=== PATIENT | male | born 1945 | race Caucasian/White ===

== ENCOUNTER 2019-12-02 12:09 | Emergency (ER) | payer OTHER, SELFPAY ==
[2019-12-02 12:15] VITALS: BP 149/74; PULSE 52; RESP 20; TEMP 36.8; O2SAT 95; BMI 38.0
--- NOTE | 2019-12-02 12:35 | ECG_ITS ---
[facility] Test Date: 2019-12-02 Pat Name: Raleigh Delatorre Department: Room: Gender: Male Manager Sharepoint: : 1945 Requested By: Tatiana Cummings I Order Number: [id number] Med MD: Jen Looney M.D. Measurements Intervals [place] Rate: 51 P: 68 CA: 182 QRS: -49 QRSD: 110 T: 44 QT: 420 QTc: 389 Interpretive Statements SINUS BRADYCARDIA LEFT AXIS DEVIATION [QRS AXIS < -30] S1-S2-S3 PATTERN, CONSISTENT WITH PULMONARY DISEASE, RVH, OR NORMAL VARIANT Compared to ECG 06/18/2017 14:37:43 First degree AV block no longer present Intraventricular conduction delay no longer present Electronically Signed On 12-02-2019 19:33:16 CDT by Jen Looney M.D. [email or web address]
--- NOTE | 2019-12-02 12:35 | XRR_ITS ---
PROCEDURE INFORMATION: Exam: XR Chest, 1 View Exam date and time: 12/02/2019 1:01 PM Age: 74 years old Clinical indication: Chest pain; Type not specified TECHNIQUE: Imaging protocol: XR of the chest Views: 1 view. COMPARISON: CR Chest 2 views* [id number] 06/18/2017 3:04 PM FINDINGS: Lungs: Unremarkable. No consolidation. Pleural space: Unremarkable. No pleural effusion. No pneumothorax. Heart/Mediastinum: Unremarkable. No cardiomegaly. Bones/joints: No acute findings. XR/XR chest 1V portable [id number] IMPRESSION: No acute findings.
[2019-12-02 12:55] LABS: Basophils % 0.5 %; Eosinophils # 0.1 10^3/uL (0.0-0.8); Eosinophils % 1.2 %; Hemoglobin 14.2 g/dL (11.7-16.6); Lymphocytes % 23.9 %; Mean Corpuscular HGB Conc 31.6 g/dL (30.0-36.0); Mean Corpuscular Hemoglobin 27.8 pg (28.0-34.0); Mean Corpuscular Volume 88.2 fL (80-94); Mean Platelet Volume 9.9 fL (7.4-10.4); Monocytes # 0.7 10^3/uL (0.2-0.9); Monocytes % 8.4 %; Neutrophils # 5.4 10^3/uL (1.8-7.7); Neutrophils % 65.6 %; Nucleated Red Blood Cells % 0 %; Platelet Count 189 10^3/cmm (130-400); Red Cell Distribution Width 13.7 % (12.1-15.1); White Blood Count 8.2 10^3/uL (4.0-10.0)
--- NOTE | 2019-12-02 12:57 | ED_ITS ---
HPI - Chest Pain General: Chief Complaint: Chest Pain Stated Complaint: cp Time Seen by Provider: 12/02/19 12:31 Source: patient Mode of arrival: ambulatory Limitations: no limitations History of Present Illness: HPI narrative: Chest pain started last night, occasional radiation to his shoulders. Chest pain is episodic and not constant. complaint: chest pain Onset (ago): day(s) (1) Timing of current episode: episodic Onset: during rest Pain location: left chest Pain radiation: left shoulder Severity: mild Quality: sharp Relieving factors: nothing Exacerbating factors: nothing Associated symptoms: Reports no associated symptoms; Deny abdominal pain, dyspnea, fever(s), nausea, palpitations or vomiting Review of Systems General: Reports: 10 or more systems reviewed and unremarkable except in HPI and below Const: Denies: fever(s), chills or body aches Eyes: Denies: change in vision or blurry vision ENMT: Denies: throat pain, enlarged tonsils, odynophagia, hoarseness, mouth pain or swelling of lips/tongue Card: Reports: chest pain; Denies: palpitations, irregular heart rhythm, edema or swelling of feet/ankles Resp: Denies: dyspnea, productive cough or non-productive cough GI: Denies: abdominal pain, nausea or vomiting : Denies: flank pain, dysuria, urinary frequency, urinary urgency or urinary hesitancy Musc: Denies: neck pain, back pain or extremity swelling Skin/Breast: Denies: rash, pruritus or erythema Neuro: Denies: headache(s), numbness in extremities or weakness in extremities Endo: Denies: polyuria, polydipsia or tired all the time [facility] ED PFSH: Medical History (Updated 12/02/19 @ 21:52 by Tatiana Cummings MD, [facility]) Bradycardia Hypertension Prostate cancer Physical Exam Const: COMMON NORMALS: no acute distress, average body habitus, patient oriented x3, no limitations, healthy appearing, alert and well nourished HENMT: COMMON NORMALS: normocephalic, atraumatic and moist oral mucous membranes HEAD & SCALP: normocephalic and atraumatic Neck/C-Spine: COMMON NORMALS: no meningeal signs and no JVD Resp: COMMON NORMALS: normal respiratory effort, No retractions, No use of accessory muscles, clear to auscultation bilaterally and percussion normal AUSCULTATION: clear to auscultation bilaterally PERCUSSION: percussion normal Cardio: COMMON NORMALS: no JVD, regular rate, regular rhythm, S1 normal heart sound present, S2 normal heart sound present, No gallops present (Cardio), No clicks present (Cardio), No murmurs present (Cardio), No rub (Cardio) and Peripheral pulses 2+ throughout RATE: regular rate RHYTHM: regular rhythm HEART SOUNDS: S1 normal heart sound present and S2 normal heart sound present PERIPHERAL PULSES: Peripheral pulses 2+ throughout GI: COMMON NORMALS: Normal to inspection, nondistended, normoactive bowel sounds present, Soft to palpation, non-tender, No hepatosplenomegaly present, no masses and no bruits PALPATION: Yes Soft to palpation and Yes No hepatosplenomegaly present : COMMON NORMALS: Yes no CVA tenderness BLADDER/KIDNEY EXAM: Yes no CVA tenderness Back/Pelvis: COMMON NORMALS: no CVA tenderness Extremity: COMMON NORMALS: normal to inspection, full ROM, capillary refill normal, no calf tenderness and no pedal edema Neuro: COMMON NORMALS: patient oriented x3 SENSORIUM/ORIENTATION: Yes alert MENINGEAL SIGNS: Yes no meningeal signs Skin: COMMON NORMALS: no rashes or lesions noted, no wounds, turgor normal, no jaundice, no petechiae and no mottling GENERAL SKIN EXAM: no rashes or lesions noted and turgor normal Course Reevaluation(s): Reevaluation #1: Patient is unwilling to wait for the results of his second troponin. He wants to be discharged home. He believes is not his heart. I discussed his lab and imaging findings so far. He still insisted on going home I will not dmitri t for his 2-hour troponin. I explained to him the risks involved including possible , he voiced understanding but still wants to go home. He was signed out AGAINST MEDICAL ADVICE. Time: 15:00 Vital Signs: Vital signs: Vital Signs Temperature 98.3 F 12/02/19 12:15 Pulse Rate 54 L 12/02/19 15:07 Respiratory Rate 16 12/02/19 15:07 Blood Pressure 178/82 12/02/19 15:07 Pulse Oximetry 95 12/02/19 15:07 MDM - Chest Pain MDM Narrative: Medical decision making narrative: 74-year-old gentleman who was sent here by the [place] [facility] with complaints of chest pain. Evaluation in the emergency department was unremarkable but the patient did not wait for his 2-hour troponin. He left AGAINST MEDICAL ADVICE. He understood the risks involved including up to . Medical Records: Attestation: I reviewed the patient's medical records. Lab Data: Attestation: I reviewed the patient's lab results. Labs: Lab Results 12/02/19 12/02/19 12/02/19 Range/Units 12:50 12:50 12:50 WBC 8.2 (4.0-10.0) 10^3/ uL RBC 5.10 (4.1-5.3) 10^6/u L Hgb 14.2 (11.7-16.6) g/dL Hct 45.0 (42.0-52.0) % MCV 88.2 (80-94) fL MCH 27.8 L (28.0-34.0) pg MCHC 31.6 (30.0-36.0) g/dL RDW 13.7 (12.1-15.1) % Plt Count 189 (130-400) 10^3/c mm MPV 9.9 (7.4-10.4) fL Neut % (Auto) 65.6 % Lymph % (Auto) 23.9 % [place] % (Auto) 8.4 % Eos % (Auto) 1.2 % Baso % (Auto) 0.5 % Neut # (Auto) 5.4 (1.8-7.7) 10^3/u L Lymph # (Auto) 2.0 (0.8-4.8) 10^3/u L [place] # (Auto) 0.7 (0.2-0.9) 10^3/u L Eos # (Auto) 0.1 (0.0-0.8) 10^3/u L Baso # (Auto) 0.0 (0.0-0.1) 10^3/u L Nucleated RBC % (a uto) 0 % Nucleated RBCs # 0.0 /100WBC PT 13.20 (10.5-13.3) SECO NDS INR 0.98 (0.8-1.2) Sodium 141 (136-145) mmol/L Potassium 4.0 (3.5-5.1) mmol/L Chloride 104 (98-107) mmol/L Carbon Dioxide 26 (22-29) mmol/L Anion Gap 15.0 (5-19) BUN 17 (8-23) mg/dL Creatinine 0.8 (0.7-1.2) mg/dL Glucose 109 (65-115) mg/dL Calculated Osmolal ity 289 (285-295) mOsm/k g Calcium 10.0 (8.5-10.5) mg/dL Total Bilirubin 1.0 (0.15-1.2) mg/dL AST 17 (0-40) U/L ALT 20 (0-41) U/L Alkaline Phosphata se 58 (40-130) IU/L Troponin T Baselin e (0-15) ng/L Troponin T 120 Min [place] (0-15) ng/L Delta Troponin T (0-10) ABS# NT-Pro-B Natriuret Pep 38 (0-125) pg/mL Total Protein 7.1 (6.6-8.7) g/dL Albumin 4.2 (3.5-5.2) g/dL Globulin 2.9 (1.3-4.6) g/dL Lipase 26 (13-60) U/L 12/02/19 12/02/19 Range/Units 12:50 14:47 WBC (4.0-10.0) 10^3/ uL RBC (4.1-5.3) 10^6/u L Hgb (11.7-16.6) g/dL Hct (42.0-52.0) % MCV (80-94) fL MCH (28.0-34.0) pg MCHC (30.0-36.0) g/dL RDW (12.1-15.1) % Plt Count (130-400) 10^3/c mm MPV (7.4-10.4) fL Neut % (Auto) % Lymph % (Auto) % [place] % (Auto) % Eos % (Auto) % Baso % (Auto) % Neut # (Auto) (1.8-7.7) 10^3/u L Lymph # (Auto) (0.8-4.8) 10^3/u L [place] # (Auto) (0.2-0.9) 10^3/u L Eos # (Auto) (0.0-0.8) 10^3/u L Baso # (Auto) (0.0-0.1) 10^3/u L Nucleated RBC % (a uto) % Nucleated RBCs # /100WBC PT (10.5-13.3) SECO NDS INR (0.8-1.2) Sodium (136-145) mmol/L Potassium (3.5-5.1) mmol/L Chloride (98-107) mmol/L Carbon Dioxide (22-29) mmol/L Anion Gap (5-19) BUN (8-23) mg/dL Creatinine (0.7-1.2) mg/dL Glucose (65-115) mg/dL Calculated Osmolal ity (285-295) mOsm/k g Calcium (8.5-10.5) mg/dL Total Bilirubin (0.15-1.2) mg/dL AST (0-40) U/L ALT (0-41) U/L Alkaline Phosphata se (40-130) IU/L Troponin T Baselin e 13 (0-15) ng/L Troponin T 120 Min [place] 13.02 (0-15) ng/L Delta Troponin T 0.02 (0-10) ABS# NT-Pro-B Natriuret Pep (0-125) pg/mL Total Protein (6.6-8.7) g/dL Albumin (3.5-5.2) g/dL Globulin (1.3-4.6) g/dL Lipase (13-60) U/L Imaging Data^: CXR: Radiologist's impression: [address] [address] XRay Report Signed Patient: Raleigh Delatorre #: [id number] : 8Acct#:[id number] Age/Sex: 74 / MADM Date: 12/02/19 Loc: ERRoom/Bed: Attending Dr: Ordering Provider/Ordering MD: Tatiana Cummings MD, [facility] Date of Service: 12/02/19 Procedure(s): XR chest 1V portable [id number] Accession Number(s): [id number] Report Number: [id number] PROCEDURE INFORMATION: Exam: XR Chest, 1 View Exam date and time: 12/02/2019 1:01 PM Age: 74 years old Clinical indication: Chest pain; Type not specified TECHNIQUE: Imaging protocol: XR of the chest Views: 1 view. COMPARISON: CR Chest 2 views* [id number] 06/18/2017 3:04 PM FINDINGS: Lungs: Unremarkable. No consolidation. Pleural space: Unremarkable. No pleural effusion. No pneumothorax. Heart/Mediastinum: Unremarkable. No cardiomegaly. Bones/joints: No acute findings. XR/XR chest 1V portable [id number] IMPRESSION: No acute findings. Dictated By:Joey Acosta MD Signed By:Joey Acosta MDSigned Date/Time:12/02/191328 DD/ 27 EKG Data^: EKG 1: Attestation: I personally reviewed and interpreted this EKG as follows: EKG interpretation date: 12/02/19 EKG interpretation time: 12:25 Prior EKG tracings: not available for review Interpretation: Not a very good EKG. Sinus bradycardia. Heart rate 51 bpm. Left axis deviation. EKG 2: Attestation: I personally reviewed and interpreted this EKG as follows: EKG interpretation date: 12/02/19 EKG interpretation time: 14:26 Prior EKG tracings: available for review Interpretation: Sinus bradycardia with first-degree heart block. Heart rate 50 bpm. Left axis deviation. No ST changes. Discharge Plan Discharge Patient Disposition: Left Against Medical Advice Clinical Impression: Chest pain Prescriptions: No Action metoprolol tartrate 100 mg Tablet 50 mg PO BID RF: 0 sildenafil 100 mg Tablet See Rx Instructions .ROUTE .COMPLEX RF: 0 Flomax 0.4 mg Capsule 0.4 mg PO DAILY RF: 0 levothyroxine 150 mcg Tablet 150 mcg PO DAILY RF: 0 omeprazole 20 mg Capsule,Delayed Release(Dr/Ec) 20 mg PO DAILY RF: 0 oxybutynin chloride 5 mg Tablet 5 mg PO QAM RF: 0 finasteride 5 mg Tablet 5 mg PO DAILY RF: 0 losartan-hydrochlorothiazide 100-12.5 mg Tablet 1 tab PO DAILY RF: 0 Multivitamin Package 1 packet PO DAILY RF: 0 Referrals: [facility] [Primary Care Provider] - Interventions: ED Discharge Assessment Last Done: 12/02/19 15:07 ED Charges Last Done: 12/02/19 15:07 Discharge Date/Time: 12/02/19 15:14 Coding Level of Care Code ED Cost Recovery Technician for Chg Fwd Exam Comprehensive
[2019-12-02 13:14] LABS: Troponin(5th) Baseline 13 ng/L (0-15)
[2019-12-02 13:24] LABS: Alanine Aminotransferase 20 U/L (0-41); Albumin Level 4.2 g/dL (3.5-5.2); Alkaline Phosphatase 58 IU/L (40-130); Aspartate Amino Transferase 17 U/L (0-40); Blood Urea Nitrogen 17 mg/dL (8-23); Carbon Dioxide 26 mmol/L (22-29); Chloride 104 mmol/L (98-107); Globulin 2.9 g/dL (1.3-4.6); Glucose 109 mg/dL (65-115); Lipase 26 U/L (13-60); NT Pro B Type Natriuretic Pept 38 pg/mL (0-125); Osmolality Calculated 289 mOsm/kg (285-295); Sodium 141 mmol/L (136-145); Total Protein 7.1 g/dL (6.6-8.7)
[2019-12-02 13:55] LABS: INR 0.98 (0.8-1.2)
--- NOTE | 2019-12-02 14:35 | ECG_ITS ---
[facility] Test Date: 2019-12-02 Pat Name: Raleigh Delatorre Department: Room: Gender: Male Implementation Coordinator: : 1945 Requested By: Tatiana Cummings I Order Number: [id number] Med MD: Jen Looney M.D. Measurements Intervals [place] Rate: 50 P: 25 SD: 241 QRS: -48 QRSD: 110 T: 28 QT: 434 QTc: 397 Interpretive Statements SINUS BRADYCARDIA WITH FIRST DEGREE AV BLOCK LEFT AXIS DEVIATION [QRS AXIS < -30] Compared to ECG 12/02/2019 12:25:09 First degree AV block now present Right ventricular hypertrophy no longer present Electronically Signed On 12-02-2019 19:34:11 CDT by Jen Looney M.D. [id number]
[2019-12-02 15:07] VITALS: BP 178/82; PULSE 54; RESP 16; O2SAT 95
[2019-12-02 15:16] LABS: Troponin 5 2HR 13.02 ng/L (0-15); Troponin 5 2HR Delta 0.02 ABS# (0-10)
== END 2019-12-02 15:14 | disposition left against medical advice (07) ==
LOC: ER 12:41
PROVIDERS: Emergency Provider Family Medicine
DX: R07.9 Chest pain, unspecified (principal); Z53.21 Procedure and treatment not carried out due to patient leaving prior to being seen by health care provider; I10 Essential (primary) hypertension; Z85.46 Personal history of malignant neoplasm of prostate
CPT/HCPCS: 12345; 36415; 71045; 80053; 83690; 83880; 84484; 85025; 85610; 93005; 99281; 99283